=== PATIENT | female | born 1990 | race Caucasian/White ===

== ENCOUNTER 2019-10-12 19:20 | Inpatient (IN) | payer OTHER, MEDICAID ==
[~2019-10-12] VITALS: Ht 147.3 cm; Wt 74.4 kg
[2019-10-12] MEDS ORDERED: NIFEDIPINE 10MG CAPSULE PO ONE (20:15)
[2019-10-12] MEDS: LACTATED RINGERS 1,000 ML IV SCH (20:36)
[2019-10-12 21:13] LABS: BASOPHILS % 0.9 % (0.0-2.0); EOSINOPHILS % 0.8 % (0.0-5.0); HEMATOCRIT. 28.5 % (36.0-48.0); HEMOGLOBIN. 9.6 g/dL (12.0-16.0); LYMPHOCYTES % 32.2 % (20.0-50.0); MEAN CORPUSCULAR HEMOGLOBIN 28.9 pg (28.0-32.0); MEAN CORPUSCULAR VOLUME 85.7 fL (81.0-99.0); MEAN PLATELET VOLUME 8.6 fl (7.4-10.4); MONOCYTES % 6.7 % (2.0-8.0); NEUTROPHILS % 59.4 % (40.0-76.0); PLATELET 256 x1000/uL (130-400); RED BLOOD CELL COUNT 3.33 mill/uL (4.2-5.4); RED CELL DISTRIBUTION WIDTH 14.2 % (11.6-14.6)
[2019-10-12 21:16] LABS: COLOR URINE YELLOW (YELLOW); KETONES URINE NEGATIVE (NEGATIVE); LEUKOCYTE ESTERASE URINE NEGATIVE (NEGATIVE); NITRITE URINE NEGATIVE (NEGATIVE); OCCULT BLOOD URINE NEGATIVE (NEGATIVE); PH URINE 5.5 (4.5-8.0); PROTEIN URINE TRACE (NEGATIVE); SPECIFIC GRAVITY URINE 1.026 (1.005-1.030); UROBILINOGEN URINE 0.2 E.U./dL (0.2-1.0)
[2019-10-12 21:20] LABS: CLARITY URINE SL HAZY (CLEAR)
[2019-10-12 21:20] LABS: CHLORIDE 111 mEq/L (98-107)
[2019-10-13] MEDS: LACTATED RINGERS 1,000 ML IV SCH (02:35)
[2019-10-13] MEDS ORDERED: NIFEDIPINE 10MG CAPSULE PO SCH (03:00)
[2019-10-13] MEDS ORDERED: DEXT 5%/LR + PITOCIN 20UNITS/L 1,000 ML IV SCH (03:49)
[2019-10-13] MEDS ORDERED: FENTANYL CITRATE/PF 50MCG/ML 2ML VIAL ONE (03:57)
[2019-10-13] MEDS ORDERED: EPHEDRINE SULFATE 50MG/ML VIAL ONE (03:57)
[2019-10-13] MEDS ORDERED: MORPHINE SULFATE/PF 1MG/ML 10ML AMP ONE (03:57)
[2019-10-13] MEDS ORDERED: MISOPROSTOL 100MCG TABLET VG SCH (04:00)
[2019-10-13] MEDS ORDERED: METHYLERGONOVINE MALEATE 0.2 MG/ML IM PRN (04:00)
[2019-10-13] MEDS ORDERED: NALOXONE HCL 0.4 MG/ML 1ML VIAL IM PRN (04:00)
[2019-10-13] MEDS ORDERED: CARBOPROST TROMETHAMINE 250 MCG/ML AMPUL IM PRN (04:00)
[2019-10-13] MEDS ORDERED: CEFAZOLIN SODIUM 1000MG/VIAL ONE (04:01)
[2019-10-13] MEDS ORDERED: PHENYLEPHRINE HCL 10 MG/ML 1ML (IV VIAL) IV ONE (04:01)
[2019-10-13] MEDS ORDERED: OXYTOCIN 10 UNITS/ML 1ML ONE (04:01)
[2019-10-13] MEDS ORDERED: ONDANSETRON HCL 4MG/2ML INJ ONE (04:01)
[2019-10-13] MEDS ORDERED: KETOROLAC 60MG/2ML VIAL IM ONE (04:34)
[2019-10-13] MEDS ORDERED: DIPHENHYDRAMINE 50MG/ML VIAL ONE (04:34)
[2019-10-13 04:43] LABS: INR 0.9; PARTIAL THROMBOPLASTIN TIME 27.6 sec (23.4-31.0); PROTHROMBIN TIME 9.8 sec (9.6-11.0)
[2019-10-13] MEDS ORDERED: DEXT 5%/LACTATED RINGERS 1,000 ML IV SCH (05:17)
[2019-10-13 05:24] LABS: HEPATITIS B SURFACE ANTIGEN NEGATIVE
[2019-10-13] MEDS ORDERED: ONDANSETRON HCL 4MG/2ML INJ IV PRN (05:30)
[2019-10-13] MEDS ORDERED: ACETAMINOPHEN WITH CODEINE 300/30MG TABLET PO PRN (05:30)
[2019-10-13] MEDS ORDERED: LANOLIN OINT 7GM TUBE TOP PRN (05:30)
[2019-10-13] MEDS ORDERED: IBUPROFEN 400MG TABLET PO PRN (05:30)
[2019-10-13] MEDS ORDERED: BISACODYL 10MG SUPP PR PRN (05:30)
[2019-10-13] MEDS ORDERED: HEMORRHOIDAL SUPP PR PRN (05:30)
[2019-10-13] MEDS ORDERED: DIPHENHYDRAMINE 25MG CAPSULE PO PRN (05:30)
[2019-10-13] MEDS ORDERED: BUTORPHANOL TARTRATE 2 MG/ML VIAL IV PRN (06:00)
[2019-10-13] MEDS ORDERED: DIPHENHYDRAMINE 50MG/ML VIAL IV PRN (06:00)
[2019-10-13] MEDS: DEXT 5%/LR + PITOCIN 20UNITS/L 1,000 ML IV SCH ×3 (06:00→13:37)
[2019-10-13] MEDS ORDERED: KETOROLAC 30MG/ML VIAL IV SCH (06:00)
[2019-10-13] MEDS ORDERED: NALOXONE HCL 0.4 MG/ML 1ML VIAL IV PRN (06:00)
[2019-10-13 08:00] VITALS: BP 96/59
[2019-10-13 08:15] VITALS: BP 88/55
[2019-10-13 08:45] VITALS: BP 97/64
[2019-10-13] MEDS: PRENATAL VIT/FE FUMARATE/FA TABLET PO SCH (09:00)
[2019-10-13 10:59] LABS: BASOPHILS % 0.4 % (0.0-2.0); HEMATOCRIT. 24.9 % (36.0-48.0); HEMOGLOBIN. 8.1 g/dL (12.0-16.0); LYMPHOCYTES % 13.3 % (20.0-50.0); MEAN CORPUSCULAR HEMOGLOBIN 28.5 pg (28.0-32.0); MEAN CORPUSCULAR VOLUME 87.3 fL (81.0-99.0); MEAN PLATELET VOLUME 8.1 fl (7.4-10.4); MONOCYTES % 8.6 % (2.0-8.0); NEUTROPHILS % 77.7 % (40.0-76.0); PLATELET 183 x1000/uL (130-400); RED BLOOD CELL COUNT 2.85 mill/uL (4.2-5.4); RED CELL DISTRIBUTION WIDTH 13.8 % (11.6-14.6)
[2019-10-13 12:18] LABS: *AMPHETAMINES SCREEN URINE NEGATIVE (NEGATIVE); *BARBITURATES SCREEN URINE NEGATIVE (NEGATIVE); *BENZODIAZEPINES SCREEN URINE NEGATIVE (NEGATIVE); *COCAINE SCREEN URINE NEGATIVE (NEGATIVE); METHADONE URINE SCREEN NEGATIVE (NEGATIVE); OPIATES URINE SCREEN NEGATIVE (NEGATIVE)
[2019-10-13 12:19] LABS: CANNABINOID URINE SCREEN NEGATIVE (NEGATIVE); PHENCYCLIDINE URINE SCREEN NEGATIVE (NEGATIVE)
[2019-10-13 16:00] VITALS: BP 110/72
[2019-10-13] MEDS: SIMETHICONE 80MG TABLET CHEW PO SCH (17:17)
[2019-10-13] MEDS: KETOROLAC 30MG/ML VIAL IV PRN (17:52)
[2019-10-13 19:35] VITALS: BP 105/62
[2019-10-13] MEDS ORDERED: PREN1TAB78 PO (19:49)
[2019-10-13] MEDS ORDERED: DOCUSATE SODIUM 100MG CAPSULE PO SCH (21:00)
[2019-10-14] MEDS: KETOROLAC 30MG/ML VIAL IV PRN (00:15)
[2019-10-14 05:00] VITALS: BP 129/75
[2019-10-14 07:30] VITALS: BP 109/76
[2019-10-14] MEDS: PRENATAL VIT/FE FUMARATE/FA TABLET PO SCH (08:33)
[2019-10-14] MEDS: SIMETHICONE 80MG TABLET CHEW PO SCH ×4 (08:33→20:47)
[2019-10-14] MEDS: ACETAMINOPHEN WITH CODEINE 300/30MG TABLET PO PRN ×3 (08:33→23:19)
[2019-10-14] MEDS: FERROUS SULFATE 325MG TABLET PO SCH ×3 (08:33→17:30)
[2019-10-14 15:19] VITALS: BP 112/77
[2019-10-14 19:35] VITALS: BP 125/84
[2019-10-15 06:00] VITALS: BP 109/72
[2019-10-15 07:50] VITALS: BP 125/75
[2019-10-15] MEDS: FERROUS SULFATE 325MG TABLET PO SCH (08:05)
[2019-10-15] MEDS: SIMETHICONE 80MG TABLET CHEW PO SCH (08:05)
[2019-10-15 08:06] VITALS: BP 125/75
[2019-10-15] MEDS: PRENATAL VIT/FE FUMARATE/FA TABLET PO SCH (08:06)
== END 2019-10-15 11:45 | disposition home or self-care (01) | DRG 788 ==
LOC: OBSVTOIN 19:20 → 8 EST LDRP 19:20 → 8EST 10-13 07:57
PROVIDERS: ADMIT Obstetrics & Gynecology; ATTEND Obstetrics & Gynecology
PROC: 10D00Z1 Extraction of Products of Conception, Low, Open Approach (ICD-10-PCS; principal; 2019-10-13)
DX: O34.211 Maternal care for low transverse scar from previous cesarean delivery (principal); O76 Abnormality in fetal heart rate and rhythm complicating labor and delivery; Z3A.36 36 weeks gestation of pregnancy; Z37.0 Single live birth
CPT/HCPCS: 36415; 76805; 76818; 80048; 80305; 81003; 85025; 86592; 86703; 86762; 86850; 86900; 87340; 88307; 99281; G0378; J0690; J1200; J1885; J2274; J2370; J2405; J2590; J3010; J3490; J7120